=== PATIENT | female | born 1960 | race Caucasian/White ===

== ENCOUNTER 2017-01-22 12:51 | Emergency (ER) | payer OTHER ==
[~2017-01-22] VITALS: Ht 172.7 cm; Wt 83.3 kg
[~2017-01-22 12:51] MED LIST: CEFTIN 250 #201 PAC PO; GOOD SENSE ASPI81 M1 PO; NICODERM C21 MG/24 H TOP; PREDNISONE10 MG PO; SPIRIVA1 PUF IH; SYMBICORT 160/41 PUF INH; VENTOLIN1 PUF INH
[2017-01-22 13:03] LABS: ABSOLUTE BASOPHIL COUNT 0.1 /CUMM (0.0-0.2); ABSOLUTE EOSINOPHIL COUNT 0.1 /CUMM (0.0-0.7); ABSOLUTE GRANULOCYTE CT 11.3 /CUMM (1.4-6.5); ABSOLUTE LYMPH COUNT 5.6 /CUMM (1.2-3.4); ABSOLUTE MONOCYTE COUNT 0.7 /CUMM (0.10-0.60); BASOPHIL % 0.3 % (0.0-2.0); EOSINOPHIL % 0.5 % (0-5); GRANULOCYTE % 63.6 % (42.2-75.2); MEAN CORPUSCULAR HGB CONC 32.4 G/DL (33.0-37.0); MEAN CORPUSCULAR VOLUME 80.4 FL (81.0-99.0); MEAN PLATELET VOLUME 7.8 FL (7.4-10.4); PLATELET COUNT 552 /CUMM (130-400); RBC DISTRIBUTION WIDTH 16.1 % (11.5-14.5); RED BLOOD CELL CT 5.48 /CUMM (4.20-5.40); WHITE BLOOD CELL COUNT 17.8 /CUMM (4.8-10.8)
[2017-01-22 13:10] VITALS: BP 109/55
--- NOTE | 2017-01-22 14:16 | ED CRITICAL CARE ---
History of Present Illness General Chief Complaint: Cardiopulmonary Resuscitation Stated Complaint: BIBA FOR CPR Source: family, old records, EMS Exam Limitations: clinical condition Vital Signs & Intake/Output Vital Signs & Intake/Output Vital Signs Date Time Temp Pulse Resp B/P Pulse O2 O2 Flow FiO2 Ox Delivery Rate 01/22 1315 60 01/22 1310 93 20 109/55 93 Allergies Coded Allergies: NO KNOWN ALLERGIES (06/28/15) Reconcile Medications Albuterol Sulfate (Ventolin) 1 UNIT PUF 2 PUF INH Q4P PRN SHORTNESS OF BREATH Aspirin 81 MG CTB 1 TAB PO ONCE THROMBOCYTOSIS Budesonide/Formoterol Fumara (Symbicort 160-4.5 Mcg Inhaler) 160 MCG/4.5 MCG PUF 2 PUF INH BID COPD (Reported) Cefuroxime (Ceftin 250 #20 Pac $55.00-T) 1 PAC PAC 1 TAB PO Q12 BRONCHITIS Nicotine (Nicoderm Cq) 21 MG/24 HR TDM 1 PATCH TOP DAILY SMOKING DEPENDENCE Prednisone 10 MG TAB 1 TAB PO SEE ADMIN CRITERIA copd ON 07/02 TAKE 6 PILLS AT A TIME FROM 07/03-07/05 TAKE 5 PILLS AT A TIME EVERY DAY FROM 07/06-07/08 TAKE 4 PILLS AT A TIME FROM 07/09-07/11 TAKE 3 PILLS AT A TIME FROM 07/12-07/14 TAKE 2 PILLS AT A TIME Tiotropium [place] (Spiriva) 1 PUF PUF 1 INH IH PUFF copd exacerbation Core Measure Meds Pre-Hospital antibiotics Triage Note: BIBA FROM HOME, FOUND UNRESPONSIVE BY FAMILE. LAST SEEN AT 1030/ CPR IN PROGRESS ON ARRIVAL. INTUBATED BY EMS (7.5 ET TUBE). GIVEN 6 ROUNDS OF EPINEPHERINE (1;[id number]), 3 AMPS LIDOCAINE (3GMS ) AND 2MG NARCAN IV. Triage Nurses Notes Reviewed? yes Onset: Just prior to arrival Duration: continues in ED, unknown duration Timing: recent history Injury Environment: home Severity: severe Pain Location: none LMP (ages 10-50): post menopausal : No Patient currently breastfeeds: No HPI: Prior to admission patient collapsed and son found she was not breathing. He called 911 and started CPR. Paramedics initiated ACLS ventricular fibrillation with return of spontaneous circulation prior to admission. Past History Travel History Traveled to [place] past 21 day No Medical History Any Pertinent Medical History? see below for history Neurological: NONE EENT: NONE Cardiovascular: NONE Respiratory: COPD, emphysema, lung cancer Gastrointestinal: NONE Hepatic: NONE Renal: NONE Musculoskeletal: NONE Psychiatric: NONE Endocrine: NONE Blood Disorders: DVT Cancer(s): cervical cancer History of MRSA: No History of VRE: No History of CDIFF: No Pneumonia Vaccine: 10/07/12 Surgical History Surgical History: non-contributory Psychosocial History Who do you live with Family Services at Home None What is your primary language French Tobacco Use: Never used Family History Family History, If Any: Relation not specified for: FH: breast cancer Hx Contributory? No Review of Systems Review of Systems Constitutional: Reports: see HPI, weakness. Eyes: Reports: no symptoms. Ears, Nose, Throat, Mouth: Reports: no symptoms. Respiratory: Reports: no symptoms. Cardiovascular: Reports: no symptoms. Gastrointestinal/Abdominal: Reports: no symptoms. Genitourinary: Reports: no symptoms. Musculoskeletal: Reports: no symptoms. Skin: Reports: no symptoms. Neurological/Psychological: Reports: see HPI, weakness. All Other Systems: Reviewed and Negative Comments Per family Physical Exam Physical Exam General Appearance: well developed/nourished, intubated, severe distress, obese Head: atraumatic Eyes: Bilateral: other (fixed dilated). Ears, Nose, Throat, Mouth: moist mucous membrane Neck: normal inspection Respiratory: mechanical breath sounds bilaterally equal Cardiovascular: femoral pulses palpitated Peripheral Pulses: 3+ carotid (R), 3+ carotid (L), 2+ femoral (R), 2+ femoral (L) Gastrointestinal: soft, non-tender Back: normal inspection Extremities: no ligament instability Neurologic/Psych: motor/sensory deficits Skin: intact, pallor Core Measures ACS in differential dx? Yes ASA ordered for poss ACS? unable to provide due to ACLS CVA/TIA Diagnosis: No Severe Sepsis Present: No Septic Shock Present: No Progress Differential Diagnoses I considered the following diagnoses in my evaluation of the patient: V. fib arrest pulmonary embolism Plan of Care: Orders Procedure Date/time Status VENTILATOR PARAMETERS 01/22 1315 Complete TROPONIN LEVEL 01/22 1258 Complete MAGNESIUM 01/22 1258 Complete COMPREHENSIVE METABOLIC PANEL 01/22 1258 Complete CBC WITHOUT DIFFERENTIAL 01/22 1258 Complete EKG 01/22 1255 Active Laboratory Tests 01/22/17 1300: Anion Gap 18 H, Estimated GFR > 60, BUN/Creatinine Ratio 10.0, Glucose 238 H, Calcium 8.8, Magnesium 2.4 H, Total Bilirubin 0.5, AST 81 H, ALT 77 H, Alkaline Phosphatase 74, Troponin I 0.19 *H, Total Protein 6.6, Albumin 3.3 L, Globulin 3.3, Albumin/Globulin Ratio 1.0 L, CBC w Diff MAN DIFF ORDERED, RBC 5.48 H, MCV 80.4 L, MCH 26.0 L, RDW 16.1 H, MPV 7.8, Gran % 63.6, Lymphocytes % 31.7, Monocytes % 3.9, Eosinophils % 0.5, Basophils % 0.3, Absolute Granulocytes 11.3 H, Segmented Neutrophils 60, Band Neutrophils 1, Absolute Lymphocytes 5.6 H, Lymphocytes 36, Monocytes 2, Absolute Monocytes 0.7 H, Eosinophils 1, Absolute Eosinophils 0.1, Absolute Basophils 0.1, Nucleated RBCs 3 H, Platelet Estimate INCREASED, Normocytic RBCs VERIFIED, Hypochromic- Microcytic 1+, PUBS MCHC 32.4 L Initial ED EKG: normal sinus rhythm, ST elevation (v2,3), ST depression ( inferolat) Prior EKG: changed Rhythm Strip: ventricular tachycardia, ventricular fibrillation Departure Departure Disposition: OTHER [facility] ([facility]) Condition: Critical Clinical Impression Primary Impression: VF (ventricular fibrillation) Referrals: CAREY PAGAN DO (PCP/Family) Departure Forms: General Discharge Information Critical Care Note Critical Care Note Critical Care Time: 30-74 min (60) Total CPR Time (mins): 10 Comments: Multiple episodes of vfib/vtach [facility] ED chief for transfer to cardiac catheterization
== END 2017-01-22 13:18 | disposition expired ==
LOC: ERH 12:51
PROVIDERS: Emergency Medicine
DX: I49.01 Ventricular fibrillation (principal); J44.9 Chronic obstructive pulmonary disease, unspecified; J43.9 Emphysema, unspecified; C34.90 Malignant neoplasm of unspecified part of unspecified bronchus or lung
CPT/HCPCS: 1344; 1387; 93005; 93010; 94799; 96374; 99291